=== PATIENT | male | born 1975 | race American Indian/Alaskan Native ===

== ENCOUNTER 2018-07-20 14:52 | Emergency (ER) | payer SELFPAY ==
[2018-07-20 15:00] VITALS: BMI 33.7
--- NOTE | 2018-07-20 15:43 | ED PDOC ---
Arrival/HPI - General Chief Complaint: Flu-like Symptoms Time Seen by Provider: 07/20/18 15:09 Historian: Patient - History of Present Illness Narrative History of Present Illness (Text): 07/20/18 15:43 A 42 year old male, whose past medical history includes hypertension, presents to the emergency department complaining of body aches and some coughing for the past 6 days. Mentions also experiencing a fever of 101. Patient reports taking NyQuil and Tylenol, however has had no relief of symptoms. Patient denies any vomiting, or any other complaints at this time. PMD: Dr. Simon Past Medical History - Provider Review Nursing Documentation Reviewed: Yes - Infectious Disease Hx of Infectious Diseases: None - Psychiatric Hx Substance Use: No - Anesthesia Hx Anesthesia: No Hx Anesthesia Reactions: No Family/Social History - Physician Review Nursing Documentation Reviewed: Yes Family/Social History: No Known Family HX Smoking Status: Current Some Days Smoker Hx Alcohol Use: Yes Frequency of alcohol use: Socially Hx Substance Use: No Allergies/Home Meds Allergies/Adverse Reactions: Allergies No Known Allergies Allergy (Verified 07/20/18 15:09) Home Medications: Home Meds Medication Instructions Recorded Confirmed No Known Home Med 07/20/18 07/20/18 Review of Systems - Physician Review All systems were reviewed & negative as marked: Yes - Review of Systems Constitutional: Fevers Respiratory: Cough Gastrointestinal: absent: Vomiting Musculoskeletal: Myalgias Physical Exam - Physical Exam Narrative Physical Exam (Text): Gen: NAD, cooperative, well appearing, non-toxic. Head: NCAT. HEENT: EYES: PERRL, EOMI, conjunctiva clear, EARS: TMs clear MOUTH: moist MM, posterior pharynx without erythema or exudate, uvula midline. CV: (+) S1S2, RRR, no M/G/R LUNGS: CTA B/L, No W/R/R, good air movement Abd: Soft, NTTP, no guarding, rebound or rigidity. Neuro: AAO x 3, GCS 15, CN 2-12 intact, motor and sensory grossly intact, 5/5 muscle strength B/L UE's and LE's. ext: no cyanosis or edema Vital Signs Reviewed: Yes Vital Signs Temp Pulse Resp BP Pulse Ox 07/20/18 14:58 101.5 F H 105 H 18 157/105 H 97 Temperature: Febrile Blood Pressure: Hypertensive Pulse: Regular Respiratory Rate: Normal Appearance: Positive for: Well-Appearing, Non-Toxic, Comfortable Pain Distress: None Mental Status: Positive for: Alert and Oriented X 3 Medical Decision Making ED Course and Treatment: 07/20/18 15:44 Impression: 42 year old male with body aches and some coughing. Plan: -- Tylenol -- Rapid Flu A/B test -- Reassess and disposition Progress Notes: 07/20/18 16:19 Patient reassessed after Tylenol, feels better. Influenza negative, results discussed with patient. Plan d/c home to follow up w/pcp and RTED for new, worsening or concerning symptoms. Pt agreeable w/POC, was given opportunity to ask questions and was provided written and verbal d/c instructions. - Lab Interpretations I have reviewed the lab results: Yes - Medication Orders Current Medication Orders: Discontinued Medications Acetaminophen (Tylenol 325mg Tab) 975 mg PO STAT STA Stop: 07/20/18 15:28 - Scribe Statement The provider has reviewed the documentation as recorded by the [place] Provider Scribe Attestation: All medical record entries made by the Scribe were at my direction and personally dictated by me. I have reviewed the chart and agree that the record accurately reflects my personal performance of the history, physical exam, medical decision making, and the department course for this patient. I have also personally directed, reviewed, and agree with the discharge instructions and disposition. Disposition/Present on Arrival - Present on Arrival Any Indicators Present on Arrival: No History of DVT/PE: No History of Uncontrolled Diabetes: No Urinary Catheter: No History of Decub. Ulcer: No History Surgical Site Infection Following: None - Disposition Have Diagnosis and Disposition been Completed?: Yes Diagnosis: Nonspecific syndrome suggestive of viral illness Disposition: HOME/ ROUTINE Disposition Time: 16:22 Patient Plan: Discharge Patient Problems: Current Active Problems Problem Status Onset Nonspecific syndrome suggestive of viral illness Acute Condition: IMPROVED Discharge Instructions (ExitCare): Viral Syndrome (DC) Additional Instructions: ADAM JOINER, thank you for letting us take care of you today. Your provider was Erin Ortega MD and you were treated for fever. The emergency medical care you received today was directed at your acute symptoms. If you were prescribed any medication, please fill it and take as directed. It may take several days for your symptoms to resolve. Return to the Emergency Department if your symptoms worsen, do not improve, or if you have any other problems. Please contact your doctor in 1-2 days for a follow up appointment. Bring any paperwork you were given at discharge with you along with any medications you are taking to your follow up visit. Our treatment cannot replace ongoing medical care by a primary care provider outside of the emergency department. Thank you for allowing the [facility] team to be part of your care today. Forms: [employer] ([place]ayan), WORK NOTE
[2018-07-20 16:47] VITALS: BP 131/43; PULSE 99; RESP 19; TEMP 100.5; O2SAT 99
== END 2018-07-20 16:44 | disposition home or self-care (01) ==
LOC: ED 14:52
DX: R50.9 Fever, unspecified (principal); R05 Cough